=== PATIENT | male | born 1960 | race Caucasian/White ===

== ENCOUNTER 2019-04-24 13:31 | Emergency (ER) | payer OTHER, SELFPAY ==
[2019-04-24] MEDS ORDERED: Lidocaine 2% PF 5 ML VIAL ONE ×2 (13:42→13:43)
== END 2019-04-24 14:19 | disposition home or self-care (01) ==
LOC: BURERS 13:31
DX: S61.216A Laceration without foreign body of right little finger without damage to nail, initial encounter (principal); W26.0XXA Contact with knife, initial encounter; F17.220 Nicotine dependence, chewing tobacco, uncomplicated; Y92.009 Unspecified place in unspecified non-institutional (private) residence as the place of occurrence of the external cause
CPT/HCPCS: 12002; J2001